=== PATIENT | male | born 1955 ===

== ENCOUNTER → 2016-10-28 | Day surgery (SDC) | payer MEDICAID ==
[~2016-10-28] VITALS: Ht 165.1 cm; Wt 87.5 kg
[2016-10-28] VITALS (7 sets, daily range): BP systolic 123–132; BP diastolic 81–92
[~2016-10-28] MED LIST: CENTRUM COMPLE1 EAC1 PO; HYDROCODON-ACE1 EA15 ORAL; Heplock Flush 100 units/ml 3 ml syr ONE; LR 1000ml ONE; Lidocaine 1% MPF 10mg/ml 5ml ONE; Propofol 10mg/ml 20ml IV ONE; Sodium Chloride 10ml vial INJ ONE
[2016-10-28 09:45] LABS: BASOPHILS % (AUTO) 1.1 % (0.0-2.0); EOSINOPHILS % (AUTO) 0.7 % (0.0-3.0); LYMPHOCYTES % (AUTO) 12.4 % (20.0-45.0); MEAN CORPUSCULAR HGB CONC 32.3 G/DL (32.0-36.0); MEAN CORPUSCULAR VOLUME 90 FL (80-99); MEAN PLATELET VOLUME 7.9 FL (6.5-10.1); MONOCYTES % (AUTO) 9.2 % (1.0-10.0); NEUTROPHILS % (AUTO) 76.6 % (45.0-75.0); PLATELET COUNT 231 K/UL (150-450); RED CELL DISTRIBUTION WIDTH 11.9 % (11.6-14.8); WHITE BLOOD COUNT 8.8 K/UL (4.8-10.8)
[2016-10-28 10:00] LABS: INR 1.1 (0.9-1.1); PROTHROMBIN TIME 11.1 SEC (9.30-11.50)
[2016-10-28 10:04] LABS: ALANINE AMINOTRANSFERASE 153 U/L (3-41); AMYLASE 27 U/L (10-110); ANION GAP 17 (5-15); ASPARTATE AMINO TRANSFERASE 82 U/L (5-40); CALCIUM 9.5 mg/dL (8.6-10.2); CARBON DIOXIDE 25 mEQ/L (20-30); CHLORIDE 100 mEQ/L (98-107); CREATININE 0.8 mg/dL (0.7-1.2); GLOMERULAR FILTRATION RATE > 60 mL/min (>60); HEMOLYSIS 22; LIPASE 22 U/L (< 60); POTASSIUM 4.2 mEQ/L (3.4-4.9); SODIUM 142 mEQ/L (135-145); TOTAL PROTEIN 7.5 g/dL (6.6-8.7)
--- NOTE | 2016-10-28 10:18 | Pre-Procedure Note/Attestation ---
Pre-Procedure Note/Attestation Complete Prior to Procedure Planned Procedure: not applicable Procedure Narrative: eus Indications for Procedure Pre-Operative Diagnosis: panc mass Attestation I attest that I discussed the nature of the procedure; its benefits; risks and complications; and alternatives (and the risks and benefits of such alternatives ), prior to the procedure, with the patient (or the patient's legal claim service representative). I attest that, if there was a reasonable possibility of needing a blood transfusion, the patient (or the patient's legal claim service representative) was given the [facility] standardized written summary, pursuant to the [place] Blood Safety Act ([place] Health and Safety Code # 1645, as amended). I attest that I re-evaluated the patient just prior to the surgery and that there has been no change in the patient's H&P, except as documented below: BUSTER DIEZ Oct 28, 2016 10:18
--- NOTE | 2016-10-28 10:20 | Short Stay Surgery H&P ---
History of Present Illness History of Present Illness Chief Complaint panc mass HPI Lazaro Lara is a 61 year old male who was admitted on for Pancreatic Mass Patient History Allergies: Coded Allergies: CORTISONE (Verified Allergy, Unknown, 10/27/16) PAST MEDICAL HISTORY: (1) Pancreatic mass Past Surgeries: Social History: Medication History Scheduled Multivitamin/Iron/Folic Acid (Centrum Complete Multivit Tab), 1 EACH PO DAILY, ( Reported) Scheduled PRN Hydrocodone/Acetaminophen 5-325* (Hydrocodone/Acetaminophen 5-325*), 1 TAB ORAL Q6H PRN for For Pain, (Reported) Review of Systems Cardiovascular: Reports: no symptoms Respiratory: Reports: no symptoms Skeletal: Reports: no symptoms Gastrointestinal: Reports: no symptoms Genitourinary: Reports: no symptoms Neurologic: Reports: no symptoms Endocrine: Reports: no symptoms Hematologic: Reports: no symptoms Physical Exam Vital Signs Last Vital Signs Date Time Temp Pulse Resp B/P Pulse Ox O2 Delivery O2 Flow Rate FiO2 10/28/16 09:45 97.2 90 18 126/82 96 Room Air Labs Laboratory Tests Test 10/28/16 09:20 White Blood Count 8.8 K/UL (4.8-10.8) Red Blood Count 4.50 M/UL (4.70-6.10) L Hemoglobin 13.1 G/DL (14.2-18.0) L Hematocrit 40.4 % (42.0-52.0) L Mean Corpuscular Volume 90 FL (80-99) Mean Corpuscular Hemoglobin 29.0 PG (27.0-31.0) Mean Corpuscular Hemoglobin Concent 32.3 G/DL (32.0-36.0) Red Cell Distribution Width 11.9 % (11.6-14.8) Platelet Count 231 K/UL (150-450) Mean Platelet Volume 7.9 FL (6.5-10.1) Neutrophils (%) (Auto) 76.6 % (45.0-75.0) H Lymphocytes (%) (Auto) 12.4 % (20.0-45.0) L Monocytes (%) (Auto) 9.2 % (1.0-10.0) Eosinophils (%) (Auto) 0.7 % (0.0-3.0) Basophils (%) (Auto) 1.1 % (0.0-2.0) Prothrombin Time 11.1 SEC (9.30-11.50) Prothromb Time International Ratio 1.1 (0.9-1.1) Activated Partial Thromboplast Time 24 SEC (23-33) Sodium Level 142 mEQ/L (135-145) Potassium Level 4.2 mEQ/L (3.4-4.9) Chloride Level 100 mEQ/L (98-107) Carbon Dioxide Level 25 mEQ/L (20-30) Anion Gap 17 (5-15) H Blood Urea Nitrogen 10 mg/dL (7-23) Creatinine 0.8 mg/dL (0.7-1.2) Estimat Glomerular Filtration Rate > 60 mL/min (>60) Glucose Level 117 mg/dL (74-106) H Calcium Level 9.5 mg/dL (8.6-10.2) Total Bilirubin 1.6 mg/dL (0.0-1.2) H Direct Bilirubin Pending Aspartate Amino Transf (AST/SGOT) 82 U/L (5-40) H Alanine Aminotransferase (ALT/SGPT) 153 U/L (3-41) H Alkaline Phosphatase 826 U/L (40-129) H Total Protein 7.5 g/dL (6.6-8.7) Albumin 3.9 g/dL (3.5-5.2) Globulin 3.6 g/dL Albumin/Globulin Ratio 1.0 (1.0-2.7) Amylase Level 27 U/L (10-110) Lipase 22 U/L (< 60) Carcinoembryonic Antigen 512.8 ng/mL H CA 19-9 Antigen Pending Skin: normal HENT: normal Heart: normal Lungs: normal Abdomen: normal Extremities: normal Plan Plan of Care EUS Final Diagnosis: Attestation Are the patient's medical conditions optimized for surgery? Attestation Response: yes BUSTER DIEZ Oct 28, 2016 10:20
[2016-10-28 10:27] LABS: BILIRUBIN,DIRECT 0.6 mg/dL (0.1-0.3)
--- NOTE | 2016-10-28 11:06 | Endoscopy Procedure Note ---
Endoscopy Procedure Note Indication for Procedure: panc mass Procedures Performed: other - EUS Operative Findings/Diagnosis: same Specimen: yes Pt Tolerated Procedure Well: Yes Estimated Blood Loss: none Anesthesiologist: gayathri Anesthesia: MAC Implant(s) used?: No 50 yrs or older w/o bx or poly: Not Applicable 10yrs. F/U not recommended: Not Applicable BUSTER DIEZ Oct 28, 2016 11:06
--- NOTE | 2016-10-28 11:52 | 48 Hour Post Anesthesia Eval ---
Post Anesthesia Evaluation Procedure: EUS Date of Evaluation: Oct 28, 2016 Time of Evaluation: 11:51 Blood Pressure Systolic: 135 0: 70 Pulse Rate: 75 Respiratory Rate: 14 O2 Sat by Pulse Oximetry: 99 Airway: patent Nausea: No Vomiting: No Hydration Status: adequate Cardiopulmonary Status: normal Mental Status/LOC: patient returned to baseline Post-Anesthesia Complications: none Follow-up care needed: N/A JAYA CHANEL CRNA Oct 28, 2016 11:51
--- NOTE | 2016-10-28 11:53 | Immediate Post-Op Evaluation ---
Immediate Post-Op Evalulation Immediate Post-Op Evalulation Procedure: EUS Date of Evaluation: Oct 28, 2016 Time of Evaluation: 11:08 IV Fluids: 200 Blood Pressure Systolic: 138 Blood Pressure Diastolic: 92 Pulse Rate: 99 Respiratory Rate: 14 O2 Sat by Pulse Oximetry: 98 Temperature (Fahrenheit): 98.4 Nausea: No Vomiting: No Complications none Patient Status: reacts, patent Hydration Status: adequate Drug: none JAYA CHANEL CRNA Oct 28, 2016 11:53
--- NOTE | 2016-10-28 11:55 | Anethesia Preoperative Eval ---
Anesthesia Pre-op PMH/ROS General Date of Evaluation: Oct 28, 2016 Time of Evaluation: 10:30 Anesthesiologist: shawn ASA Score: ASA 2 Mallampati Score Class I : Soft palate, uvula, fauces, pillars visible Class II: Soft palate, uvula, fauces visible Class III: Soft palate, base of uvula visible Class IV: Only hard plate visible Mallampati Classification: Class II Surgeon: gunnar Diagnosis: pancreatic mass Surgical Procedure: EUS Anesthesia History: none Family History: no anesthesia problems Allergies: Coded Allergies: CORTISONE (Verified Allergy, Unknown, 10/27/16) Medications: see eMAR Past Medical History Cardiovascular: Denies: CAD, HTN, TN, arrhythmia, other, valve dz Pulmonary: Denies: COPD, PRAVEEN, asthma, other Gastrointestinal/Genitourinary: Denies: CRI, ESRD, GERD, other Neurologic/Psychiatric: Denies: CVA, TIA, dementia, depression/anxiety, other Endocrine: Denies: DM, hypothyroidism, other, steroids HEENT: Denies: [place] (L), [place] (R), cataract (L), cataract (R), glaucoma, other Hematology/Immune: Denies: DVT, anemia, bleeding disorder, other Musculoskeletal/Integumentary: Denies: DDD, DJD, OA, RA, edema, other PMH Narrative: pancreatic mass Anesthesia Pre-op Phys. Exam Physician Exam Last Vital Signs Date Time Temp Pulse Resp B/P Pulse Ox O2 Delivery O2 Flow Rate FiO2 10/28/16 11:32 80 20 124/89 99 Room Air 10/28/16 11:17 2.0 10/28/16 11:07 98.0 Constitutional: NAD Neurologic: CN 2-12 intact Cardiovascular: RRR Respiratory: CTA Gastrointestinal: S/NT/ND Airway Exam Mallampati Classification 2 Mallampati Score: Class II ROM: full Dentures: no lower, no upper Anesthesia Pre-op A/P Labs Hematology Test 10/28/16 09:20 White Blood Count 8.8 K/UL (4.8-10.8) Red Blood Count 4.50 M/UL (4.70-6.10) L Hemoglobin 13.1 G/DL (14.2-18.0) L Hematocrit 40.4 % (42.0-52.0) L Mean Corpuscular Volume 90 FL (80-99) Mean Corpuscular Hemoglobin 29.0 PG (27.0-31.0) Mean Corpuscular Hemoglobin Concent 32.3 G/DL (32.0-36.0) Red Cell Distribution Width 11.9 % (11.6-14.8) Platelet Count 231 K/UL (150-450) Mean Platelet Volume 7.9 FL (6.5-10.1) Neutrophils (%) (Auto) 76.6 % (45.0-75.0) H Lymphocytes (%) (Auto) 12.4 % (20.0-45.0) L Monocytes (%) (Auto) 9.2 % (1.0-10.0) Eosinophils (%) (Auto) 0.7 % (0.0-3.0) Basophils (%) (Auto) 1.1 % (0.0-2.0) Coagulation Test 10/28/16 09:20 Prothrombin Time 11.1 SEC (9.30-11.50) Prothromb Time International Ratio 1.1 (0.9-1.1) Activated Partial Thromboplast Time 24 SEC (23-33) Chemistry Test 10/28/16 09:20 Sodium Level 142 mEQ/L (135-145) Potassium Level 4.2 mEQ/L (3.4-4.9) Chloride Level 100 mEQ/L (98-107) Carbon Dioxide Level 25 mEQ/L (20-30) Anion Gap 17 (5-15) H Blood Urea Nitrogen 10 mg/dL (7-23) Creatinine 0.8 mg/dL (0.7-1.2) Estimat Glomerular Filtration Rate > 60 mL/min (>60) Glucose Level 117 mg/dL (74-106) H Calcium Level 9.5 mg/dL (8.6-10.2) Total Bilirubin 1.6 mg/dL (0.0-1.2) H Direct Bilirubin 0.6 mg/dL (0.1-0.3) H Aspartate Amino Transf (AST/SGOT) 82 U/L (5-40) H Alanine Aminotransferase (ALT/SGPT) 153 U/L (3-41) H Alkaline Phosphatase 826 U/L (40-129) H Total Protein 7.5 g/dL (6.6-8.7) Albumin 3.9 g/dL (3.5-5.2) Globulin 3.6 g/dL Albumin/Globulin Ratio 1.0 (1.0-2.7) Amylase Level 27 U/L (10-110) Lipase 22 U/L (< 60) Carcinoembryonic Antigen 512.8 ng/mL H CA 19-9 Antigen > 97411 U/mL (< 37) H Studies Pre-op Studies: EKG - sr Risk Assessment & Plan Plan: mac Status Change Before Surgery: No Pre-Antibiotics Drug: none JAYA CHANEL CRNA Oct 28, 2016 11:55
--- NOTE | 2016-10-28 21:17 | Procedure Note ---
DATE OF PROCEDURE: 10/28/2016 SURGEON: Gentry Ambriz M.D. PROCEDURE: Endoscopic ultrasound with fine-needle aspiration. ANESTHESIA: Per [employer], Toyin Tarrillion. INSTRUMENT: Olympus EUS and linear scope. INDICATION: Pancreatic mass. REASON FOR PROCEDURE: The procedure, risks, benefits, and possible consequences, including hemorrhage, aspiration, perforation and infection, and alternative treatments, were explained to the patient/legal guardian by Dr. Gentry Ambriz and the patient/legal guardian understood and accepted these risks. DESCRIPTION OF PROCEDURE: After informed consent was obtained and the patient was adequately sedated, EUS scope was advanced from mouth into the stomach. Scanning in the stomach showed evidence of a very large tumor in the body/tail of the pancreas measured roughly over 4 cm, hypoechoic in nature, suspicious for malignancy. Then, we used a 22-gauge core needle to the 3 FNAs and remove adequate tissue for pathologist for evaluation. The patient tolerated the procedure without any complication. SUMMARY OF FINDINGS: Large pancreatic body/tail mass measured minimum 4 cm, status post FNA x3. 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 This was for tissue diagnosis. We will follow on the biopsy results and defer the patient to Oncology for followup. Gentry Ambriz M.D. DR: Zakiya JOB#: [id number] CC:
== END | disposition home or self-care (01) ==
LOC: GAS 08:44
DX: C25.9 Malignant neoplasm of pancreas, unspecified (principal); Z88.8 Allergy status to other drugs, medicaments and biological substances
CPT/HCPCS: 36415; 43238; 80053; 82150; 82248; 82378; 83690; 85025; 85610; 85730; 86301; J1642; J1956; J2704; J7120; Z7512; 94003; 94150